=== PATIENT | male | born 1945 | race Caucasian/White ===

== ENCOUNTER 2021-02-01 08:37 | Inpatient (IN) | payer OTHER, BC ==
[2021-02-01] MEDS ORDERED: ACETAMINOPHEN 1000 MG/100 ML VIAL (NON FORMULARY) IVPB ONE (09:11)
[2021-02-01] MEDS ORDERED: ACETAMINOPHEN INJECTION 100 ML IVPB ONE (09:25)
[2021-02-01 09:41] LABS: HEMOGLOBIN 14.6 GM/dl (11.7-16.9); RDW 14.2 % (11.9-15.9)
[2021-02-01 09:45] LABS: HEMATOCRIT 42.9 % (35.4-49); MCH 27.4 pg (25.7-33.7); MCHC 34.1 g/dl (32.0-35.9); MEAN CELL VOLUME 80.6 fl (80-96); MEAN PLT VOLUME 10.8 fl (7.5-11.1); PLATELET COUNT 166 10^3/uL (134-434); RBC 5.32 M/mm3 (4.00-5.60); WHITE BLOOD COUNT 9.6 K/mm3 (4.0-10.8)
[2021-02-01 10:01] LABS: ALBUMIN 4.1 g/dl (3.4-5.0); BILIRUBIN,TOTAL 0.9 mg/dl (0.2-1); CALCIUM 8.9 mg/dl (8.5-10); CREATININE 1.3 mg/dl (0.55-1.3); TOT PROT 7.4 g/dl (6.4-8.2)
[2021-02-01 10:09] LABS: EPITHELIAL CELLS FEW /hpf
[2021-02-01 10:16] LABS: URINE MUCUS 1+
[2021-02-01] MEDS ORDERED: morphine CARPU-JECT 4 MG/1 ML DISP.SYRIN IVPUSH ONE (10:40)
[2021-02-01] MEDS ORDERED: morphine SULFATE 4 MG/ML VIAL ONE (10:41)
[2021-02-01] MEDS ORDERED: HYDROmorphone HCL CARPU-JECT 1 MG/1 ML DISP.SYRIN IVPUSH ONE (11:48)
[2021-02-01] MEDS ORDERED: SODIUM CHLORIDE 0.9% 500 ML INFUS.BAG IV ONE (11:59)
[2021-02-01] MEDS ORDERED: HYDROmorphone HCL/PF 1 MG/ML VIAL ONE (12:15)
[2021-02-01] MEDS ORDERED: CEFTRIAXONE 1,000 MG in DEXTROSE 5%-WATER - 50 ML IVPB ONE (12:16)
[2021-02-01] MEDS ORDERED: cefTRIAXone SODIUM 1 GM VIAL ONE (12:24)
[2021-02-01] MEDS ORDERED: ACETAMINOPHEN 1000 MG/100 ML VIAL (NON FORMULARY) IVPB PRN ×2 (13:26→20:06)
[2021-02-01] MEDS ORDERED: D5-1/2NS+20 MEQ KCL - 20 MEQ/1,000 ML INFUS.BAG IV SCH ×2 (13:30→20:06)
[2021-02-01] MEDS ORDERED: amLODIPine BESYLATE 2.5 MG TABLET (FP) PO ONE (13:45)
[2021-02-01] MEDS ORDERED: metoPROLOL SUCCINATE 25 MG TAB.SR.24H (FP) PO ONE (13:45)
[2021-02-01] MEDS ORDERED: IOHEXOL 180 MG/1 ML ML IJ ONE (16:55)
[2021-02-01] MEDS ORDERED: MIDAZOLAM HCL 2 MG/2 ML SINGLE DOSE VIAL ONE ×2 (18:04→18:26)
[2021-02-01 18:14] VITALS: BMI 28.1
[2021-02-01] MEDS ORDERED: ONDANSETRON 4 MG/2 ML VIAL IVPUSH PRN ×2 (18:24→20:06)
[2021-02-01] MEDS ORDERED: PROPOFOL 20 ML ONE (18:26)
[2021-02-01] MEDS ORDERED: KETOROLAC TROMETHAMINE 30 MG/1 ML VIAL ONE (18:49)
[2021-02-01] MEDS ORDERED: DEXAMETHASONE SOD PHOSPHATE 4 MG/1 ML VIAL ONE (18:49)
[2021-02-01 20:54] VITALS: TEMP 97.5
[2021-02-01 21:01] VITALS: BP 122/80; PULSE 78
[2021-02-02] MEDS ORDERED: metoPROLOL SUCCINATE 25 MG TAB.SR.24H (FP) PO SCH ×2 (10:00)
[2021-02-02] MEDS ORDERED: CEFTRIAXONE 1 GM in DEXTROSE 5%-WATER - 50 ML IVPB SCH (10:00)
[2021-02-02] MEDS ORDERED: amLODIPine BESYLATE 2.5 MG TABLET (FP) PO SCH ×2 (10:00)
[2021-02-02] MEDS ORDERED: PNEUMOC 13-VAL CONJ-DIP CRM/PF 0.5 ML DISP.SYRIN IM ONE (10:00)
[2021-02-02] MEDS ORDERED: PATIENT'S OWN MEDICATION (NON-FORMULARY) (Lovastatin [Lovastatin] 10 MG) PO SCH (22:00)
[2021-02-02] MEDS ORDERED: LOVASTATIN 10 MG PO SCH (22:00)
== END 2021-02-01 21:31 | disposition home or self-care (01) | DRG 661 ==
LOC: FER 08:37 → J5S 14:38
PROVIDERS: ADMIT Urology; ATTEND Urology
PROC: 0TJB8ZZ Inspection of Bladder, Via Natural or Artificial Opening Endoscopic (ICD-10-PCS; 2021-02-01)
PROC: 0T778DZ Dilation of Left Ureter with Intraluminal Device, Via Natural or Artificial Opening Endoscopic (ICD-10-PCS; principal; 2021-02-01 18:30)
PROC: BT1FZZZ Fluoroscopy of Left Kidney, Ureter and Bladder (ICD-10-PCS; 2021-02-01 18:30)
DX: N13.6 Pyonephrosis (principal); I10 Essential (primary) hypertension; L40.9 Psoriasis, unspecified; E78.5 Hyperlipidemia, unspecified
CPT/HCPCS: 36415; 74177-TC; 80053; 81003; 81015; 85025; 86850; 86900; 86901; 87086; 94760; 99285-25; C9803; J0131; Q9967; U0003; U0005

== ENCOUNTER 2021-02-27 04:25 | Day surgery (SDC) | payer OTHER, BC ==
[2021-02-24 16:54] VITALS: BMI 28.1
[2021-02-27] MEDS ORDERED: MIDAZOLAM HCL 2 MG/2 ML SINGLE DOSE VIAL ONE (08:19)
[2021-02-27 09:26] VITALS: TEMP 98
[2021-02-27 10:09] VITALS: BP 144/68; PULSE 66
== END 2021-02-27 10:31 | disposition home or self-care (01) ==
LOC: JASU-SURG 04:25
PROVIDERS: ATTEND Urology
PROC: 0TF4XZZ Fragmentation in Left Kidney Pelvis, External Approach (ICD-10-PCS; principal; 2021-02-27 08:30)
DX: N20.0 Calculus of kidney (principal)

== ENCOUNTER 2021-03-13 05:01 | Day surgery (SDC) | payer OTHER, BC ==
[2021-03-09 14:46] VITALS: BMI 27.3
[2021-03-13] MEDS ORDERED: oxyCODONE HCL 5 MG TABLET PO PRN ×2 (09:05)
[2021-03-13] MEDS ORDERED: ONDANSETRON 4 MG/2 ML VIAL IVPUSH PRN (09:05)
[2021-03-13] MEDS ORDERED: PROMETHAZINE HCL 25 MG/1 ML VIAL IVPUSH PRN (09:05)
[2021-03-13] MEDS ORDERED: LACTATED RINGERS SOLUTION 1,000 ML IV SCH (09:15)
[2021-03-13] MEDS ORDERED: PROPOFOL 20 ML ONE (09:30)
[2021-03-13] MEDS ORDERED: MIDAZOLAM HCL 2 MG/2 ML SINGLE DOSE VIAL ONE (09:31)
[2021-03-13] MEDS ORDERED: ceFAZolin SODIUM 1 GM VIAL IVPB ONE (09:47)
[2021-03-13] MEDS ORDERED: GENTAMICIN 80MG PREMIX BAG IVPB ONE (09:47)
[2021-03-13] MEDS ORDERED: ceFAZolin SODIUM 1 GM VIAL ONE (09:55)
[2021-03-13] MEDS ORDERED: DEXAMETHASONE SOD PHOSPHATE 4 MG/1 ML VIAL ONE (09:55)
[2021-03-13] MEDS ORDERED: GENTAMICIN SO4 80 MG/2 ML VIAL ONE (09:55)
[2021-03-13] MEDS ORDERED: IOHEXOL 300 MG/ML INFUS..BTL IJ ONE (09:56)
[2021-03-13 11:54] VITALS: BP 142/73; PULSE 72; TEMP 98.6
== END 2021-03-13 12:00 | disposition home or self-care (01) ==
LOC: JASU-SURG 05:01
PROVIDERS: ATTEND Urology
PROC: 0TCB8ZZ Extirpation of Matter from Bladder, Via Natural or Artificial Opening Endoscopic (ICD-10-PCS; principal; 2021-03-13 09:00)
DX: N21.0 Calculus in bladder (principal)
CPT/HCPCS: 88300-TC; 94760

== ENCOUNTER 2021-04-24 04:21 | Day surgery (SDC) | payer OTHER, BC ==
[2021-04-21 09:08] VITALS: BMI 26.6
[2021-04-24] MEDS ORDERED: KETAMINE HCL 200 MG/20 ML VIAL ONE (07:51)
[2021-04-24] MEDS ORDERED: MIDAZOLAM HCL 2 MG/2 ML SINGLE DOSE VIAL ONE (07:51)
[2021-04-24] MEDS ORDERED: KETOROLAC TROMETHAMINE 30 MG/1 ML VIAL ONE (07:53)
[2021-04-24 09:54] VITALS: BP 156/73; PULSE 79; TEMP 97.9
== END 2021-04-24 09:45 | disposition home or self-care (01) ==
LOC: JASU-SURG 04:21
PROVIDERS: ATTEND Urology
PROC: 0TF4XZZ Fragmentation in Left Kidney Pelvis, External Approach (ICD-10-PCS; principal; 2021-04-24 08:00)
DX: N20.0 Calculus of kidney (principal)

== ENCOUNTER 2021-06-05 04:30 | Day surgery (SDC) | payer OTHER, BC ==
[2021-06-01 09:17] VITALS: BMI 27.3
[2021-06-05] MEDS ORDERED: MIDAZOLAM HCL 2 MG/2 ML SINGLE DOSE VIAL ONE (07:52)
[2021-06-05 12:13] VITALS: BP 130/70; PULSE 70; TEMP 97
== END 2021-06-05 11:10 | disposition home or self-care (01) ==
LOC: JASU-SURG 04:30
PROVIDERS: ATTEND Urology
PROC: 0TF4XZZ Fragmentation in Left Kidney Pelvis, External Approach (ICD-10-PCS; principal; 2021-06-05 08:30)
DX: N20.0 Calculus of kidney (principal)

== ENCOUNTER 2021-06-22 07:37 | Emergency (ER) | payer OTHER, BC ==
[2021-06-22 07:52] VITALS: BP 166/90; PULSE 92; TEMP 98.7; BMI 25.8
[2021-06-22] MEDS ORDERED: LIDOCAINE 5% TOPICAL PATCH TP ONE (07:53)
[2021-06-22] MEDS ORDERED: LIDOCAINE 5% TOPICAL PATCH ONE (07:57)
[2021-06-22] MEDS ORDERED: LIDOCAINE PATCH REMOVAL MC SCH (22:00)
== END 2021-06-22 08:52 | disposition home or self-care (01) ==
LOC: FER 07:37
DX: M54.50 Low back pain, unspecified (principal)
CPT/HCPCS: 72110-TC-FY; 99283-25

== ENCOUNTER 2021-07-28 12:34 | Emergency (ER) | payer OTHER, BC ==
[2021-07-28] MEDS ORDERED: DIPHTH,PERTUSS(ACELL),TET 0.5 ML DISP.SYRIN IM ONE ×2 (12:54→13:25)
[2021-07-28 13:12] VITALS: BP 165/70; PULSE 92; TEMP 99.8; BMI 27.3
== END 2021-07-28 13:49 | disposition home or self-care (01) ==
LOC: FER 12:34
PROC: 3E0234Z Introduction of Serum, Toxoid and Vaccine into Muscle, Percutaneous Approach (ICD-10-PCS; principal; 2021-07-28)
DX: S61.411A Laceration without foreign body of right hand, initial encounter (principal); W27.4XXA Contact with kitchen utensil, initial encounter; Y93.G1 Activity, food preparation and clean up
CPT/HCPCS: 90471; 90715; 99284-25